=== PATIENT | female | born 1990 | race Caucasian/White ===

== ENCOUNTER 2025-01-08 20:54 | Emergency (ER) | payer OTHER, SELFPAY ==
--- NOTE | ~2025-01-08 | XR_ITS ---
XR forearm RT 2V Ordering provider: Lokesh Abraham PA-C History: . fall, laceration . Comparison: None. FINDINGS: BONES: No acute fracture or dislocation. JOINT SPACES: Normal. SOFT TISSUES: Normal. IMPRESSION: No acute osseous abnormality right forearm. Reviewed, dictated and finalized at location A.
--- NOTE | ~2025-01-08 | XR_ITS ---
XR hand RT min 3V Ordering provider: Lokesh Abraham PA-C History: . R hand laceration, fall . Comparison: None. FINDINGS: BONES: No acute fracture or dislocation. JOINT SPACES: Normal. SOFT TISSUES: Radiopaque foreign bodies are seen medially opposite the wrist area. IMPRESSION: No acute osseous abnormality right hand. Radiopaque foreign bodies seen medially. Reviewed, dictated and finalized at location A.
[2025-01-08 20:57] VITALS: BP 97/65; PULSE 107; RESP 16; TEMP 36.4; O2SAT 98
--- NOTE | 2025-01-08 21:06 | PC.NURSE ---
patient arrived to ED with lacerations on her arm and her palm. In triage this rn provided wound cleaning and applied wet to dry dressing to arm with coban and non adherent tefla to patient palm with coban.
--- NOTE | 2025-01-08 21:43 | ED_ITS ---
HPI - General Adult General Chief complaint: Wound/Laceration Stated complaint: hand injury Time Seen by Provider: 01/08/25 21:11 Source: patient Mode of arrival: ambulatory Limitations: no limitations History of Present Illness HPI narrative: This is a 34-year-old female who presents to the ED for chief complaint of fall with multiple lacerations to the right forearm. 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 States that she fell onto the wine glass which broke on the ground. This caused multiple small lacerations to her right forearm. She denies any further injury. States last tetanus shot was 5 years ago. Related Data Allergies Allergy/AdvReac Type Severity Reaction Status Date / Time azithromycin Allergy Severe Anaphylaxis Verified 01/08/25 20:57 infliximab (From Remicade) Allergy Severe Anaphylaxis Verified 01/08/25 20:58 Review of Systems Review of Systems: All systems as dictated in HPI Exam Narrative: GENERAL: Well-appearing, well-nourished, and in no acute distress. HEAD: Normocephalic, atraumatic. EYES: PERRLA and EOMI. ENT: Nares clear, no rhinorrhea or epistaxis. Mucous membranes moist. Oropharynx without tonsillar hypertrophy exudate or other lesions. NECK: Supple. No adenopathy or masses. CHEST: No respiratory distress. Clear to auscultation. No wheezes rales or rhonchi HEART: Regular rate and rhythm. No murmur heard. Normal peripheral pulses. ABDOMEN: Soft, nontender, nondistended, normal active bowel sounds. MSK: Normal range of motion. No edema. SKIN: Several small lacerations to the right volar forearm and palm. No active bleeding. NEURO: Alert and oriented x4. No focal deficits. PSYCH: Normal mood and affect. Course Vital Signs Vital signs: Vital Signs Temperature 97.6 F 01/08/25 20:57 Pulse Rate 107 H 01/08/25 20:57 Respiratory Rate 16 01/08/25 20:57 Blood Pressure 97/65 L 01/08/25 20:57 Pulse Oximetry 98 01/08/25 20:57 Oxygen Delivery Room Air 01/08/25 20:57 Temperature 97.6 F 01/08/25 20:57 Pulse Rate 97 01/08/25 23:02 Respiratory Rate 18 01/08/25 23:02 Blood Pressure 96/54 L 01/08/25 23:02 Pulse Oximetry 100 01/08/25 23:02 Oxygen Delivery Room Air 01/08/25 20:57 Procedures Laceration Laceration 1: Date: 01/08/25 Time: 22:44 Site: upper extremity Side (If applicable): right Size (cm): 3 Description: linear Depth: simple, single layer Local Anesthetic: lidocaine 1% and with epi Amount of anesthesia used (mL): 2 Pre-repair: wound explored, irrigated extensively and deep structures intact ====== Skin Level ====== Skin layer closed with: nylon Size (cm): 5-0 Number of sutures: 7 Technique: simple, interrupted ====== Subcutaneous Layer ====== ====== Muscle Layer ====== ====== Tendon Layer ====== Laceration 2: Date: 01/08/25 Time: 22:45 Site: upper extremity Side (If applicable): right Size (cm): 1 Description: linear Depth: simple, single layer Local Anesthetic: lidocaine 1% and with epi Amount of anesthesia used (mL): 1 Pre-repair: wound explored, irrigated extensively and deep structures intact ====== Skin Level ====== Skin layer closed with: nylon Size (cm): 5-0 Number of sutures: 2 Technique: simple, interrupted ====== Subcutaneous Layer ====== ====== Muscle Layer ====== ====== Tendon Layer ====== Laceration 3: Date: 01/08/25 Time: 22:45 Site: upper extremity Side (If applicable): right Size (cm): 2 Description: linear Depth: simple, single layer Local Anesthetic: lidocaine 1% and with epi Amount of anesthesia used (mL): 2 Pre-repair: wound explored, irrigated extensively and deep structures intact ====== Skin Level ====== Skin layer closed with: nylon Size (cm): 5-0 Number of sutures: 3 Technique: simple, interrupted ====== Subcutaneous Layer ====== ====== Muscle Layer ====== ====== Tendon Layer ====== Laceration 4: Date: 01/08/25 Time: 22:46 Site: hand Side (If applicable): right Size (cm): 3 Description: linear Depth: simple, single layer Local Anesthetic: lidocaine 1% and with epi Amount of anesthesia used (mL): 2 Pre-repair: wound explored, irrigated extensively and deep structures intact ====== Skin Level ====== Skin layer closed with: nylon Size (cm): 5-0 Number of sutures: 3 Technique: simple, interrupted ====== Subcutaneous Layer ====== ====== Muscle Layer ====== ====== Tendon Layer ====== Medical Decision Making MDM Narrative Medical decision making narrative: This is a 34-year-old female who presents to the ED for chief complaint of multiple lacerations to the right forearm after fall tonight on to broken glass. Vitals are normal. Exam remarkable for the above. The wounds were well cleansed irrigated here in the ED. Removed loose glass pieces from wound beds. The wounds were primarily closed with sutures. She will be started on prophylactic antibiotics as [place] is leaving the country tomorrow. Placed Ethilon sutures which should be removed in about 7-10 days. Laceration instructions were given. Patient will be discharged in stable condition. Supportive measures discussed and return precautions given. Patient is understanding and agreeable with plan for discharge with PCP follow-up. Vital Signs Vital Signs: Vital Signs Temperature 97.6 F 01/08/25 20:57 Pulse Rate 107 H 01/08/25 20:57 Respiratory Rate 16 01/08/25 20:57 Blood Pressure 97/65 L 01/08/25 20:57 Pulse Oximetry 98 01/08/25 20:57 Oxygen Delivery Room Air 01/08/25 20:57 Temperature 97.6 F 01/08/25 20:57 Pulse Rate 97 01/08/25 23:02 Respiratory Rate 18 01/08/25 23:02 Blood Pressure 96/54 L 01/08/25 23:02 Pulse Oximetry 100 01/08/25 23:02 Oxygen Delivery Room Air 01/08/25 20:57 Discharge Plan Discharge Clinical Impression: Laceration of multiple sites Patient Disposition: Home, Self-Care Condition: Stable Instructions: Antibiotic Form, Laceration (ED) Additional Instructions: Keep wound clean and dry. Do not soak, take baths, or swim until wound is completely healed. If any signs of infection such as redness, swelling, increasing pain, drainage of purulent discharge, streaks up your extremity develop, seek medical attention immediately. Followup with your primary care provider in [7-10] days for suture removal. Take Keflex as prescribed for bacterial prevention. Patient Language: Colombian Prescriptions: New cephalexin 750 mg capsule 750 mg PO Q12H Qty: 10 0RF Follow-up/Referrals: PHYSICIAN NOT ON STAFF,NONSTAFF [Primary Care Provider] - Time of Disposition: 22:47
--- OUTSIDE RECORDS SUMMARY | 2025-01-08 22:21 | XMS_ITS | Encounter Summary ---
Author Organization [facility] Address [address] [place] [address] Phone Care Team Providers Care Grinder And Plater Name Role Phone Kai Landers MD Unavailable [phone] Piedad Orr DO Primary Care Provider Velma Ash MD Unavailable Encounter Details Date Type Department Care Team (Late st Contact Info) Description 03/10/2019 Orders Only [facility] Scanning, Provider Social History Tobacco Use Types Packs/Day Years Used Date Smoking Tobacco: Former Comments Unknown Sex and Gender Information Value Date Recorded Sex Assigned at Not on file Legal Sex Female 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 Gender Identity Female 03/01/2020 9:11 AM CDT Sexual Orientation Lesbian 03/01/2020 9: 11 AM CDT documented as of this encounter Plan of Treatment Not on file documented as of this encounter Procedures Procedure Name Priority Date/Time Associated Diagnosis Comments SCAN - PATHOLOGY 03/10/2019 documented in this encounter Results * SCAN - PATHOLOGY (03/10/2019) us Provider Scanning Edited Result - Final documented in this encounter Visit Diagnoses Not on filedocumented in this encounter Additional Health Concerns Infection Onset Date Last Indicated Resolved Time COVID: Suspected 08/25/2021 08/25/2021 08/26/2021 5:34 AM BALLISTIC TECHNICIAN COVID: Suspected 08/05/2022 08/05/2022 08/06/2022 3:05 AM CDT COVID: Suspected 08/05/2022 08/05/2022 08/06/2022 3:45 AM CDT documented as of this encounter Care Teams Grinder And Plater Relationship Specialty Start Date End Date Piedad Orr DO [address] [facility] [address] DIV IM GASTROENTEROLOGY, [address] [address] PCP - General Family Medicine 04/21/24 Kai Landers MD [address] [facility] [address] DIV IM GASTROENTEROLOGY, [address] [address] Referring Physician Gastroenterology 12/12/21 Velma Ash MD [address] [place] [address] [address] Consulting Physician Obstetrics and Gynecology 04/21/24 documented as of this encounter
--- OUTSIDE RECORDS SUMMARY | 2025-01-08 22:21 | XMS_ITS | Encounter Summary ---
Author Organization [facility] Healthcare Address [address] [place] [address] Care Team Providers Care Gun Examiner Name Role Phone Kai Landers MD Unavailable [phone] Piedad Orr DO Primary Care Provider [phone] Velma Ash MD Unavailable Encounter Details Date Type Department Care Team (Late st Contact Info) Description 05/03/[address] 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 Gender Identity Female 03/01/2020 9:11 AM CDT Sexual Orientation Lesbian 03/01/2020 9: 11 AM CDT documented as of this encounter Plan of Treatment Not on file documented as of this encounter Visit Diagnoses Not on filedocumented in this encounter Additional Health Concerns Infection Onset Date Last Indicated Resolved Time COVID: Suspected 08/25/2021 08/25/2021 08/26/2021 5:34 AM INFORMATION SYSTEMS SECURITY MANAGER COVID: Suspected 08/05/2022 08/05/2022 08/06/2022 3:05 AM CDT COVID: Suspected 08/05/2022 08/05/2022 08/06/2022 3:45 AM CDT documented as of this encounter Care Teams Gun Examiner Relationship Specialty Start Date End Date Piedad Orr DO [address] [facility] DIV IM GASTROENTEROLOGY, [address] [address] PCP - General Family Medicine 04/21/24 Kai Landers MD [address] [facility] DIV GASTROENTEROLOGY, [address] [address] Referring Physician Gastroenterology 12/12/21 Velma Ash MD [address] [place] [address] [address] Consulting Physician Obstetrics and Gynecology 04/21/24 documented as of this encounter
--- OUTSIDE RECORDS SUMMARY | 2025-01-08 22:21 | XMS_ITS | Encounter Summary ---
Author Organization [facility] Healthcare Address [address] [place] [address] Care Team Providers Care Senior Materials Scientist Name Role Phone Kai Landers MD Unavailable [phone] Piedad Orr DO Primary Care Provider [phone] Velma Ash MD Unavailable Encounter Details Date Type Department Care Team (Late st Contact Info) Description 10/25/2021 Telephone [facility] ([facility]) [address] [place], [place] [id number] Edilma Buchanan DO [address] [id number] Social History Tobacco Use Types Packs/Day Years Used Date Smoking Tobacco: Never Vaping 2014 Smokeless Tobacco: Never Comments:1 year only Alcohol Use Standard Drinks/Week Comments Yes 2 (1 standard drink = 0.6 oz pur e alcohol) AUDIT-C Answer Date Recorded Q1: How often do you have a drink containing alc ohol? 2-4 times a month 09/26/2021 Q2: How many drinks containi ng alcohol do you have on a typical day when you are drinking? 1 or 2 09/26/2021 Q3: How often do you have si x or more drinks on one occasion? 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 Author CCM Chronic Pain Care Plan Chronic Care Management Worsening( 7:40 AM VC++ DEVELOPER) No Michelle Ugalde, JARAD Note: Problem: Chronic Pain Goals: 1. Minimize further functional decline 2. Maximize quality of life 3. Control pain Strategies: - Activity/exercise program recommendation - Conservative stepwise pain medicine strategy with multi-disciplinary approach - Recommend healthy lifestyle strategies and compensatory methods as needed documented as of this encounter Visit Diagnoses Not on filedocumented in this encounter Additional Health Concerns Infection Onset Date Last Indicated Resolved Time COVID: Suspected 08/05/2022 08/05/2022 08/06/2022 3:05 AM CDT COVID: Suspected 08/05/2022 08/05/2022 08/06/2022 3:45 AM CDT documented as of this encounter Care Teams Senior Materials Scientist Relationship Specialty Start Date End Date Piedad Orr DO [address] [facility] [address] DIV GASTROENTEROLOGY, [address] [address] PCP - General Family Medicine 04/21/24 Kai Landers MD [address] [facility] DIV GASTROENTEROLOGY, [address] [address] Referring Physician Gastroenterology 12/12/21 Velma Ash MD [address] [place] [address] DR Prit[address] [address] Consulting Physician Obstetrics and Gynecology 04/21/24 documented as of this encounter
--- OUTSIDE RECORDS SUMMARY | 2025-01-08 22:21 | XMS_ITS | Encounter Summary ---
Author Organization [facility] Healthcare Address [address] [place] [address] Care Team Providers Care Batter Depositor Name Role Phone Kai Landers MD Unavailable [phone] Piedad Orr DO Primary Care Provider [phone] Velma Ash MD Unavailable Encounter Details Date Type Department Care Team (Late st Contact Info) Description 05/02/2021 Telephone [facility] [address] [facility] [address] [place], [place] [id number] Kai Agudelo MD [address] [facility] [address] [place], [place] [id number] Social History Tobacco Use Types Packs/Day Years Used Date Smoking Tobacco: Every Day Cigarettes Started: 2013; Last attempted to quit: 2014 Vaping Smokeless Tobacco: Never Comments:1 year only Alcohol Use Standard Drinks/Week Comments Yes 2 (1 standard drink = 0.6 oz pur e alcohol) AUDIT-C Answer Date Recorded Q1: How often do you have a drink containing alc ohol? 2-4 times a month 04/30/2021 Q2: How many drinks containi ng alcohol do you have on a typical day when you are drinking? 3 or 4 04/30/2021 Q3: How often do you have si x or more drinks on one occasion? 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 Author CCM Chronic Pain Care Plan Chronic Care Management Worsening( 7:40 AM APARTMENT RENTAL CLERK) Michelle Gamez, JARAD Note: Problem: Chronic Pain Goals: 1. [...] COVID: Suspected 08/25/2021 08/25/2021 08/26/2021 5:34 AM APARTMENT RENTAL CLERK COVID: Suspected 08/05/2022 08/05/2022 08/06/2022 3:05 AM CDT COVID: Suspected 08/05/2022 08/05/2022 08/06/2022 3:45 AM CDT documented as of this encounter Care Teams Batter Depositor Relationship Specialty Start Date End Date Piedad Orr DO [address] DIV IM GASTROENTEROLOGY, [address] [address] PCP - General Family Medicine 04/21/24 Kai Landers MD [address] DIV GASTROENTEROLOGY, [address] [address] Referring Physician Gastroenterology 12/12/21 Velma Ash MD [address] [place] [address] DR Prit[address] [id number] Consulting Physician Obstetrics and Gynecology 04/21/24 documented as of this encounter
--- OUTSIDE RECORDS SUMMARY | 2025-01-08 22:22 | XMS_ITS | Referral Summary ---
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 would like her to be evaluated by Cardiology and Rheumatology for their input on her treatment options. Skyrizi may be in appealing option but it is hard to predict if this would be effective at improving her joint pain and managing her disease better than Stelara. 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 We worry that Cimzia we will not be effective. She would an incomplete response to Stelara so Skyrizi may also be less than perfect. Rinvoq may be more appealing as she is also having substantial joint pain but we would want to have her cardiac issues evaluated. Entyvio is certainly a safe option but would not help joint pain and may not have the best coverage for small bowel activity. She is reluctant to consider mercaptopurine or methotrexate due to previous experience. We would like her to continue Humira at the current interval for now and we will offer her referral to Rheumatology and Cardiology for symptomatic hypotension/syncope. Assessment & Plan (07/23/2022 9:52 PM CDT): finally in clinical remission on humira. Continue this. Get MRE this year to eval stricture and colon next year with possible dilation. IBD overlap and other chronic pain. I will take over rxing for NTP (increase to 75 up to 100) and lyrica. Assessment & Plan (05/03/2022 3:51 PM CDT): Unfortunately patient has never been able achieve full remission on Stelara despite appropriate drug levels. Now that she has been cleared by surgery to try other medications, we would like to retry Remicade given the patient's historical response. As she could have developed antibodies over this time, we provided her with a 40 mg samples syringe to take this evening after premedicating with Benadryl and prednisone. She can repeat this 1 more time the next day. If she has no symptoms after the 1st 24 hours, she can discontinue Benadryl and prednisone but should continue to look for late reaction symptoms. We would like her to to get her Humira antibody level checked next week. If she tolerates the injection well and does not have any antibodies, we would advocate for full Humira re-induction. As she required higher doses of Humira in the past to manage her disease, we will plan to check her trough level after she has had couple maintenance doses to see if needs to be adjusted. She will need a colonoscopy but does not need 1 in late May as she has mid therapy transition. We will offer her 2 months of budesonide for bridging and a week's worth of Xifaxan to see if this can help with some of her bloating symptoms. If the patient has reaction to Humira or has antibodies, we would consider Cimzia. Other alternatives would be Skyrizi or Rinvoq. Plan 1. Patient to try a single dose of Humira with antibody testing next week. She was given prednisone and encouraged to use Benadryl as premedications to mitigate any reaction 2. If the patient tolerates the injection and has no antibodies, we would recommend standard Humira re-induction and check trough level after a couple maintenance doses 3. Budesonide bridge for 2 months 4. If patient does not tolerate Humira, we can consider Cimzia, Skyrizi, or Rinvoq 5. The patient will need a repeat colonoscopy but this should be towards the end of the year after she has been on a therapy for at least 3-4 months Assessment & Plan (01/26/2022 7:24 PM CDT): Unfortunately the patient has not had a a complete response to Stelara and has very appropriate drug levels. She has not tolerated combination therapy and has required multiple rounds of budesonide to manage her symptoms. She does have arthralgias that seem to improve on budesonide and methotrexate suggesting that these are inflammatory. We do believe it is appropriate to change therapies but do not want to compromise her surgery plans. While in the past there had been concern about TNF inhibitors with surgical outcomes, more recent data has been quite supportive of it safety particularly when surgery is timed at the end of the interval. Https://pubmed.ncbi.nlm.nih.gov/16422433/. Stelara is considered even more safe across all categories than anti TNF. Any therapy that keeps her off prednisone would be superior. As we do not wish to disrupt the patient's surgery schedule as we are hopeful that she will get relief from this procedure, the considerations are: 1. Stay on Stelara until she has had surgery and then transition to either Cimzia or Humira. It now appears that surgery is not scheduled until March and the patient may require steroids in the interim. We also do not feel that she needs to be off therapy for extended periods of time around her surgery based on current data. Dr. Landers is available to discuss this further with the surgeon 2. Switch to either Cimzia or Humira now and coordinate was surgery 3. Re-stage disease now to evaluate the location of disease prior to changing therapies 4. Consider clinical trial after surgery or off-label use of something like Rinvoq Assessment & Plan (04/20/2021 7:35 PM CDT): Unfortunately the patient has only had a partial response to Stelara and methotrexate in cannot tolerate methotrexate for the side effects. We would like to see if adding back azathioprine can help achieve remission. Once the patient's doses therapeutic she will need a repeat colonoscopy and/or imaging to evaluate her response. If she is still isn't in remission, we would consider restarting Humira. The patient is aware that she may have developed antibodies to Humira. If she does have antibodies, Cimzia remains an option as Entyvio and clinical trials. We will give her an extension on her budesonide to bridge the azathioprine Plan 1. Continue Stelara for now 2. Restart azathioprine 125 mg daily 3. Safety labs now 4. Recheck metabolites in 4-6 weeks to verify adequacy 5. Continue budesonide until she has started azathioprine and then try to wean off after about a full month on budesonide 6. Repeat colonoscopy once her azathioprine dose is therapeutic and she has been on it for at least 3 months Assessment & Plan (12/18/2020 7:34 PM CDT): Still appears to have mild disease activity. The stricture in the terminal ileum may be causing some of the intermittent pain. Unfortunately, it is 10 cm long so it is unlikely to be dilated. 2 months budesonide, check stelara levels at trough (soon), vit d. Decrease mtx to 12.5 or go to 5 pills. 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 She is now appears to be having some response to ustekinumab with the addition of methotrexate. Her ustekinumab level was good. We would like to assess for objective improvement in inflammation. -MRE and colonoscopy when able -Continue ustekinumab and methotrexate at current doses Depression Resolved Problems Problem Noted Date Diagnosed Date Resolved Date Crohn's disease of ileum without complication 04/12/20 20 12/18/2020 Overview (04/12/2020): Added automatically from request for surgery [id number] Immunizations Immunization Administration Dates Next Due Influenza, Unspecified 08/20/2020 PPD TEST 04/25/2015 Pfizer SARS-CoV-2 Monovalent Vaccination (12+ Yrs) PURPLE 05/29/2021,11/03/2020,10/14/2020 Tdap 07/08/2020 Social History Tobacco Use Types Packs/Day Years Used Date Smoking Tobacco: Former Cigarettes Vaping Smokeless Tobacco: Never Tobacco Cessation:Counseling Given: Not Answered Comments:Currently vapes Alcohol Use Standard Drinks/Week Comments Yes 2 (1 standard drink = 0.6 oz pur e alcohol) AUDIT-C Answer Date Recorded Q1: How often do you have a drink containing alc ohol? 2-3 times a week 08/20/2024 Q2: How many drinks containi ng alcohol do you have on a typical day when you are drinking? 1 or 2 08/20/2024 Q3: How often do you have si x or more drinks on one occasion? Less than monthly 08/20/2024 PHQ-2 Answer Date Recorded PHQ-2 Total Score (If total score is 3 or more points, staff should administer the PHQ-9) 0 02/07/2022 Personal Safety Answer Date Recorded Have you ever been in or are you currently in a harmful physical or emotional relationship or is someone making you feel afraid or unsafe? 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 [employer] Not on file Not on file Not on file Last Filed Vital Signs Vital Sign Reading Time Taken Comments Blood Pressure 108/73 09/14/2024 11:32 AM TERMINAL WORKER Pulse 89 09/14/2024 11:32 AM TERMINAL WORKER Temperature 36.5 C (97.7 F) 08/20/2024 5:00 PM TERMINAL WORKER Respiratory Rate 12 08/20/2024 5:00 PM TERMINAL WORKER Oxygen Saturation 98% 08/20/2024 5:00 PM TERMINAL WORKER Inhaled Oxygen Concentration - - Weight 62.4 kg (137 lb 9.6 oz) 09/14/2024 11:32 AM TERMINAL WORKER Height 157.5 cm (5' 2 ) 09/14/2024 11:32 AM TERMINAL WORKER Body Mass Index 25.17 09/14/2024 11:32 AM TERMINAL WORKER Plan of Treatment Not on file Goals Goal Patient Goal Type Associated Problems Recent Progress Patient-Stated? Author CCM Chronic Pain Care Plan Chronic Care Management Worsening( 7:40 AM TERMINAL WORKER) No Michelle Ugalde RN Note: Problem: Chronic Pain Goals: 1. Minimize further functional decline 2. Maximize quality of life 3. Control pain Strategies: - Activity/exercise program recommendation - Conservative stepwise pain medicine strategy with multi-disciplinary approach - Recommend healthy lifestyle strategies and compensatory methods as needed Medical Devices Implanted Type Area County Agent Device Identifier Shelf Expiration Date Model / Serial / Lot [employer] Cinch[employer]s [employer] Professional Lock [place] Suture Labrum [id number] - [id number] Implanted:Qty: 1 on 03/07/2022 by Deborah Montoya MD at [facility] [place] Right: Hip Central Endoscopy [id number] 04/26/2023 [id number] / / [id number] [employer] [id number] Xbraid 1.2mm Suture Nonabsorbable Titanium Uhmwpe Nonsterile - [id number] Implanted:Qty: 1 on 03/07/2022 by Deborah Montoya MD at [facility] [place] Right: Hip [employer] [id number] 01/03/2024 [id number] / / [id number] Bard Per[employer] V[employer] Ultraclip Bard 17ga 10cm 2 Trigger Permanent Ultrasound [id number] - [id number] Implanted:Qty: 1 on 09/03/2023 by Katya Shaffer MD at [facility] Right: Breast [employer] [id number] / / Procedures Procedure Name Priority Date/Time Associated Diagnosis Comments PROGESTERONE Routine 11/18/2024 10:10 AM TERMINAL WORKER Encounter for fertility testing PROLACTIN Routine 11/18/2024 10:10 AM TERMINAL WORKER Encounter for fertility testing TSH Routine 11/11/2024 11:43 AM TERMINAL WORKER Encounter for screening for other suspected endocrine disorder ANTIMULLERIAN HORMONE (AMH) Routine 11/11/2024 11:43 AM TERMINAL WORKER Encounter for fertility testing PROGESTERONE Routine 11/11/2024 11:43 AM TERMINAL WORKER Encounter for fertility testing HYSTEROSALPINGOGRAM Schedule Routine, Read Routine (OP Routine) 11/11/2024 10:57 AM TERMINAL WORKER Cervical stenosis (uterine cervix) POCT HCG, URINE Routine 11/11/2024 10:07 AM TERMINAL WORKER HIGH RISK HPV DNA DETECTION WITH GENOTYPING Routine 04/28/2024 9:39 AM CDT Cervical cancer screening from Last 3 Months or Most Recently Relevant to Health Maintenance Results * Prolactin (11/18/2024 10:10 AM TERMINAL WORKER) Prolactin 19.8 4.8 - 23.3 ng/mL Blood 11/18/2024 10:1 0 AM TERMINAL WORKER 11/18/2024 10:29 AM TERMINAL WORKER us Najma Mars MD LAB BLOOD ORDERABLES Final Re sult [facility] Department [place] [address] * Progesterone (11/18/2024 10:10 AM TERMINAL WORKER) Progesterone 9.85 ng/mL Comment: Interpretive Data Males: <0.15 ng/mL Females: Follicular <0.20 ng/mL Ovulation <4.1 ng/mL Luteal 4.1 - 14.5 ng/mL 1st Trimester 11.0 - 44.0 ng/mL 2nd Trimester 25.0 - 83.0 ng/mL 3rd Trimester 59.0 - 214.0 ng/mL Postmenopausal <0.13 ng/mL Current interpretive data was last revised 2021. Blood 11/18/2024 10:1 0 AM TERMINAL WORKER 11/18/2024 10:29 AM TERMINAL WORKER Najma Mars MD LAB BLOOD ORDERABLES Final Re sult Performing Organization Address [facility] Co de Phone Number [facility] [place] [place] [address] * Antimullerian hormone (AMH) (11/11/2024 11:43 AM TERMINAL WORKER) AMH, ab 2.6 0.58 - 8.1 ng/mL [facility] Comment: ADDITIONAL INFORMATION The testing method is an electrochemiluminescence assay manufactured by [employer] and performed on the Mitchel system. Values obtained with different assay methods or kits may be different and cannot be used interchangeably. This test has been modified from the manufacturers instructions. Its performance characteristics were determined by [facility] in a manner consistent with CLIA requirements. This test has not been cleared or approved by the U.S. Food and Drug Administration. Test Performed by: [address] [address] Horseback Riding Instructor: Justa Lopez Ph.D.; CLIA# [id number] Blood 11/11/2024 11:4 3 AM TERMINAL WORKER 11/11/2024 3:07 PM TERMINAL WORKER Najma Mars MD LAB BLOOD ORDERABLES Final Re sult Performing Organization Address [facility] Co de Phone Number [facility] Department [place] [address] [facility] * Progesterone (11/11/2024 11:43 AM TERMINAL WORKER) Progesterone 0.39 ng/mL Comment: Interpretive Data Males: <0.15 ng/mL Females: Follicular <0.20 ng/mL Ovulation <4.1 ng/mL Luteal 4.1 - 14.5 ng/mL 1st Trimester 11.0 - 44.0 ng/mL 2nd Trimester 25.0 - 83.0 ng/mL 3rd Trimester 59.0 - 214.0 ng/mL Postmenopausal <0.13 ng/mL Current interpretive data was last revised 2021. Blood 11/11/2024 11:4 3 AM TERMINAL WORKER 11/11/2024 12:43 PM TERMINAL WORKER Najma Mars MD LAB BLOOD ORDERABLES Final Re sult Performing Organization Address City/[facility] Co de Phone Number [facility] Department [place] [address] * TSH (11/11/2024 11:43 AM TERMINAL WORKER) Thyroid Stimulating Hormone 3.07 0.30 - 4.20 mcIUnit/mL Blood 11/11/2024 11:4 3 AM TERMINAL WORKER 11/11/2024 12:43 PM TERMINAL WORKER Najma Mars MD LAB BLOOD ORDERABLES Final Re sult Performing Organization Address City/[facility] Co de Phone Number [facility] [address] [place] [address] * FL Hysterosalpingogram (11/11/2024 10:57 AM TERMINAL WORKER) Anatomical Region Laterality Modality Body, Pelvis N/A Radio Fluoroscop y 11/11/2024 11:1 8 AM TERMINAL WORKER Impressions 11/11/2024 11:32 AM TERMINAL WORKER 1. Patent right fallopian tube with appropriate peritoneal spillage. The most easily visualized cervix and cervical os is on the right. The left was not easily visualized and was not cannulated. 2. Small filling defect in the mid-right uterine cavity. On review of prior MRI exams, there is a possible correlate that may represent a tiny submucosal fibroid or focal adenomyosis (see image 16 of series 3 on the 05/26/14 MRI of the hip). No definite correlate for this is appreciated on provided images from the prior pelvic US. If indicated, this could be further evaluated with either a dedicated pelvic MRI or hystero sonogram. Dictated by: Dixon Georges M.D. (Ramanan) The radiology attending physician has personally reviewed this study, and had reviewed and/or edited this written report and agrees with it. Electronically signed by: Mohsen Mckinney M.D. Narrative 11/11/2024 11:32 AM TERMINAL WORKER EXAMINATION: HYSTEROSALPINGOGRAM HISTORY: 34 year old woman, on day 11 of her menstrual cycle. Noted to have 2 uterine cavities and 2 cervices. Diagnostic evaluation of the fallopian tubes and uterine cavity. TECHNIQUE: Using sterile technique, a speculum was inserted into the vagina and the cervix swabbed with Betadine solution. A hysterocatheter was placed and Conray 60 was injected into the uterus via the visualized cervical os. Fluoroscopic images of the pelvis were obtained. The patient tolerated the procedure well without complication. Dr. Mohsen Mckinney M.D., the attending radiologist, was present from the beginning to the end of the procedure. FINDINGS: Endocervical canal: During the speculum exam, we were able to easily visualize one cervix and cervical os which was cannulated. The second cervical os was not well visualized. During contrast injection, accessed cervical os communicated with the right uterine cavity and fallopian tube. Uterus: The uterus is anteverted. There is a small filling defect in the mid-right uterine cavity which persists when the catheter is retracted with deflated balloon. Fallopian tubes: The right fallopian tube is normal in contour. There is peritoneal spillage from the right fallopian tube. Procedure Note Mohsen Mckinney MD - 11/11/2024 EXAMINATION: HYSTEROSALPINGOGRAM HISTORY: 34 year old woman, on day 11 of her menstrual cycle. Noted to have 2 uterine cavities and 2 cervices. Diagnostic evaluation of the fallopian tubes and uterine cavity. TECHNIQUE: Using sterile technique, a speculum was inserted into the vagina and the cervix swabbed with Betadine solution. A hysterocatheter was placed and Conray 60 was injected into the uterus via the visualized cervical os. Fluoroscopic images of the pelvis were obtained. The patient tolerated the procedure well without complication. Dr. Mohsen Mckinney M.D., the attending radiologist, was present from the beginning to the end of the procedure. FINDINGS: Endocervical canal: During the speculum exam, we were able to easily visualize one cervix and cervical os which was cannulated. The second cervical os was not well visualized. During contrast injection, accessed cervical os communicated with the right uterine cavity and fallopian tube. Uterus: The uterus is anteverted. There is a small filling defect in the mid-right uterine cavity which persists when the catheter is retracted with deflated balloon. Fallopian tubes: The right fallopian tube is normal in contour. There is peritoneal spillage from the right fallopian tube. IMPRESSION: 1. Patent right fallopian tube with appropriate peritoneal spillage. The most easily visualized cervix and cervical os is on the right. The left was not easily visualized and was not cannulated. 2. Small filling defect in the mid-right uterine cavity. On review of prior MRI exams, there is a possible correlate that may represent a tiny submucosal fibroid or focal adenomyosis (see image 16 of series 3 on the 05/26/14 MRI of the hip). No definite correlate for this is appreciated on provided images from the prior pelvic US. If indicated, this could be further evaluated with either a dedicated pelvic MRI or hystero sonogram. Dictated by: Dixon Georges M.D. (Ramanan) The radiology attending physician has personally reviewed this study, and had reviewed and/or edited this written report and agrees with it. Electronically signed by: Mohsen Mckinney M.D. Najma Mars MD IMG FLUOROSCOPY PROCEDURES Fi nal Result * POCT hCG, urine (11/11/2024 10:07 AM TERMINAL WORKER) HCG, ur, POC Negative Negative Lot Number [id number] QC Backgroud Clear Acceptable QC Control Line Acceptable Urine 11/11/2024 10:0 7 AM TERMINAL WORKER Najma Mars MD POINT OF CARE TEST ORDERABLES Final Result * High Risk HPV DNA Detection with Genotyping (Molecular component) (04/28/2024 9:39 AM CDT) HPV HR 16 Not Detected Not Detected [facility] Comment:Testing performed by : [facility], [address] [place]., [address] HPV HR 18 Not Detected Not Detected [facility] Comment:Testing performed by : [facility], [address] [place]., [address] HPV HR Non 16/18 Not Detected Not Detected [facility] Comment: Interpretive Data Nucleic acid amplification for detection of high-risk Human Papilloma virus (HPV) is performed by the Dar[employer] Mitchel 6800 HPV test. This assay specifically detects HPV-16 and HPV-18 genotypes. The following HPV genotypes are detected as high-risk HPV: HPV-31, 33, 35, ,39, 45, 51, 52, 56, 58, 59, 66, and 68. This assay has been approved by the [place] Food and Drug Administration for detection of HPV in cervical specimens collected by a physician using an endocervical brush/spatula or cervical broom and placed in the ThinPrep Pap Test PreservCyt collection containers. The performance characteristics of this test have been verified by the [facility] Molecular Infectious Disease laboratory. Correlate with separately reported cytology results, as applicable. Interpretive data last revised 23 Testing performed by: [facility], [address] [place]., [address] Endocervical 04/28/2024 9:39 AM CDT 04/29/2024 12:54 PM CDT Narrative [facility] - 04/29/2024 6:14 PM CDT Clinical history and diagnosis->Screening, Crohn's, complete septate uterus Testing type->Screening Last menstrual period (date if known)->03/05/2024 Veronika Peguero OLD TESTAMENT PROFESSOR LAB BODY FLUIDS AND S TOOLS ORDERABLES Final Result Performing Organization Address City/State/[facility] Co hi Phone Number [facility] [place] [address] Department [place] [address] [facility] from Last 3 Months or Most Recently Relevant to Health Maintenance Insurance [employer] Address: [facility] [id number] [place] [address] [employer] Address: [facility] [id number] [place] [address] GENERIC [employer] [address] [facility] [phone] [place] [address] [employer] C[employer] Advance Directives For more information, please contact: [phone] * Full Code (Latest Code Status on File) Date Activated Date Inactivated Comments 07/14/2024 7:17 AM 07/14/2024 1:06 PM * Full Code Date Activated Date Inactivated Comments 03/05/2023 9:58 AM 03/05/2023 4:40 PM * Full Code Date Activated Date Inactivated Comments 07/12/2020 5:03 PM 07/13/2020 10:02 PM * Full Code Date Activated Date Inactivated Comments 05/15/2020 8:20 AM 05/15/2020 2:44 PM Care Teams Hot Die Press Feeder Relationship Specialty Start Date End Date Piedad Orr DO [address] [facility] [address] DIV IM GASTROENTEROLOGY, [address] [address] PCP - General Family Medicine 04/21/24 Kai Landers MD [address] [facility] [address] DIV IM GASTROENTEROLOGY, [address] [address] Referring Physician Gastroenterology 12/12/21 Velma Ash MD [employer] [facility] [address] [place] [address] [address] Consulting Physician Obstetrics and Gynecology 04/21/24
--- OUTSIDE RECORDS SUMMARY | 2025-01-08 22:22 | XMS_ITS | Clinical Summary ---
Author Organization [facility] Address [address] [place] [address] Care Team Providers Care Can Operator Name Role Phone Unavailable Primary Care Provider Unavailabl e Source Comments [facility],non-owned Affiliates and Associated Physician Practices is amultiple site organization consisting of ambulatory clinics and hospital sitesin [place], [place], [place] and [place]. This disclosure is being madepursuant to the Care Everywhere program and may not contain all information available regarding this patient. Last updated 18.[facility] Allergies Active Allergy Reactions Criticality Noted Date Comments Amoxicillin 11/20/2016 Azithromycin 11/20/2016 Social History Tobacco Use Types Packs/Day Years Used Date Smoking Tobacco: Never Assessed Sex and Gender Information Value Date Recorded Sex Assigned at Not on file Gender Identity Not on file Sexual Orientation Not on file Last Filed Vital Signs Vital Sign Reading Time Taken Comments Blood Pressure 120/62 11/20/2016 6:23 PM [facility] Pulse 82 11/20/2016 6:23 PM [facility] Temperature 36.8 C (98.2 F) 11/20/2016 6:23 PM [facility] Respiratory Rate 18 11/20/2016 6:23 PM [facility] Oxygen Saturation - - Inhaled Oxygen Concentration - - Weight 54.4 kg (120 lb) 11/20/2016 6:23 PM [facility]HA[facility] Height 158.8 cm (5' 2.5 ) 11/20/2016 6:23 PM [facility]HA[facility]ER Body Mass Index 21.6 11/20/2016 6:23 PM [facility]HA[facility]ER Plan of Treatment Health Maintenance Due Date Last Done Comments PAP SMEAR 1990 HIV SCREENING 2005 HEPATITIS C SCREENING 01/07/2008 DTAP/TDAP/TD VACCINES (1 - Tdap) 2009 HEPATITIS B VACCINE (1 of 3 - 19+ 3-dose series) 2009 COVID-19 VACCINE (2023-2 5 season) 2024 INFLUENZA VACCINE (#1) 2024 DEPRESSION SCREENING 10/06/2024 ZOSTER VACCINE (1 of 2) 01/12/2040 HIB VACCINE Aged Out No longer eligi ble based on patient's age to complete this topic HPV VACCINE Aged Out No longer eligi ble based on patient's age to complete this topic MENINGOCOCCAL (Group B) VACC INE SHARED DECISION-MAKING Aged Out No longer eligibl e based on patient's age to complete this topic MENINGOCOCCAL GROUPS A/C/Y/W VACCINE Aged Out No longer eligible b ased on patient's age to complete this topic PNEUMOCOCCAL VACCINE Aged Out No long er eligible based on patient's age to complete this topic
--- OUTSIDE RECORDS SUMMARY | 2025-01-08 22:22 | XMS_ITS | Clinical Summary ---
Author Organization [facility] Address [facility] [place] [address] Care Team Providers Care Compounder [employer]ile [employer] Name Role Phone Kai Landers MD Unavailable [phone] Piedad Orr DO Primary Care Provider [phone] Velma Ash MD Unavailable Allergies Active Allergy Reactions Criticality Noted Date [...] mouth nightly 90 capsule 1 4 12/18/19 25 Discontinu ed(Reorder ) risankizumab-rzaa (Skyrizi) 360 mg/2.4 mL (150 mg/mL) wearable injectorIndicatio ns:PA approved valid from 02/17/24-03/18/25 Inject 360 mg under the skin every 8 (eight) weeks 2.4 mL 1 5 12/18/19 25 Discontinu ed(Reorder ) dextroamphetamine -amphetamine (ADDERALL) 20 mg tabletIndications :Attention-Defici t Hyperactivity Disorder Take 1 tablet (20 mg total) by mouth 2 (two) times a day 60 tablet 5 12/15/19 25 Discontinu ed(Reorder ) sertraline (Zoloft) 25 mg tabletIndications :Depression, unspecified depression type,PTSD (post-traumatic stress disorder),Anxiety Take 1 tablet (25 mg total) by mouth daily 30 tablet 1 5 12/15/19 25 Discontinu ed(Duplica te order) doxycycline (doxycycline hyclate) 100 mg capsule Take 1 tablet/caps ule (100 mg total) by mouth 2 (two) times a day for 10 days 20 tablet/capsu le 5 01/01/20 25 Hospital, Clinic, or Other Facility Administered Medication Ordered Dose Route Frequency Start Date End Date Status perflutren protein-a (OPTISON) 3 mL in sodium chloride 0.9% 8 mL syringe 1 - 8 mL IV Once in imaging 09/03/2023 Active Active Problems Problem Noted Date Diagnosed Date Vaginal septum 06/30/2024 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 Assessment & Plan (08/14/2023 7:13 AM OUTSIDE ENERGY SALES REPRESENTATIVES): Ideally we would limit stimulant laxatives in favor of osmotic options. She is encouraged to try taking Metamucil gummy and go up on her magnesium. If this is insufficient, we can certainly explore options like Ibrance, Trulance, Amitiza, or low-dose Linzess Tachycardia 08/14/2023 Assessment & Plan (08/14/2023 7:15 AM OUTSIDE ENERGY SALES REPRESENTATIVES): The patient is scheduled to see Cardiology in a week. She is increasingly bothered by palpitations. The Adderall and her nortriptyline potentially could contribute to palpitations. If her rail transit operator thought her nortriptyline was felt to be [...] (01/18/2022): Added automatically from request for surgery [id number] Other chronic pain 10/11/2021 Assessment & Plan (12/09/2023 4:58 PM OUTSIDE ENERGY SALES REPRESENTATIVES): The patient would like to try tapering [...] (07/11/2020): Added automatically from request for surgery [id number] Avulsion of right foot excluding toes 07/09/2020 Overview (07/09/2020): Added automatically from request for surgery [id number] High risk medications (not anticoagulants) long- term [...] Therapy. We regularly update our https://ibd.[facility] website and social media feeds to further [...] with IBD including those on immunosuppressive drugs. https://www.crohnscolitisfoundation.org/coronavirus/btwt-obn-nerejeqh-should-kno w https://www.cdc.gov/coronavirus/2019-nCoV/index.html https://www.ioibd.org/xqmjc-tqopfj-yp-ahqpu32-jmb-fvaebhqv-gfnk-mgufmv-sxunjcz-n nd-ul cerative-colitis/ Assessment & Plan (02/21/2020 4:43 [...] Therapy. We regularly update our https://ibd.[facility] website and social media feeds to further [...] COVID-19 to the SECURE-IBD registry at COVIDIBD.org. https://www.crohnscolitisfoundation.org/coronavirus/npts-kqg-skdfxzin-should-kno w https://www.cdc.gov/coronavirus/2019-nCoV/index.html https://www.ioibd.org/ffzxv-eyrnir-dc-ngfye97-idz-zjvsvwjy-svgw-ltvrsc-tibtbnj-n nd-ul cerative-colitis/ Epigastric pain 06/18/2019 Assessment & [...] 10/05/2013 Assessment & Plan (12/09/2023 4:55 PM OUTSIDE ENERGY SALES REPRESENTATIVES): The patient is feeling better on Trulance. [...] 11/03/2008 Assessment & Plan (08/14/2023 7:11 AM OUTSIDE ENERGY SALES REPRESENTATIVES): The patient indicates that her joint pain [...] dilation. Assessment & Plan (12/09/2023 4:54 PM OUTSIDE ENERGY SALES REPRESENTATIVES): Happily the patient is feeling progressive improvement [...] therapy Assessment & Plan (09/05/2023 4:01 PM OUTSIDE ENERGY SALES REPRESENTATIVES): Happily the patient did appear to have [...] bridging. Assessment & Plan (08/14/2023 7:18 AM OUTSIDE ENERGY SALES REPRESENTATIVES): The patient's recent colonoscopy and MR enterography [...] timed at the end of the interval. Https://pubmed.ncbi.nlm.nih.gov/98672163/. Stelara is considered even more safe across [...] Date Crohn's disease of ileum without complication 04/12/2012/18/2020 Overview (04/12/2020): Added automatically from request for surgery [id number] Encounters Date Type Department Care Team Description 12/21/2024 12:55 PM CDT E-Visit [facility] Medical Group Virtual Care [address] [place] [address] Erika Pond NP Your Medications 12/21/2024 Patient Self-Triage [facility] HealthCare/ Physicians [address] [place] [address] Mychart, Generic Provider 12/17/2024 Orders Only [facility] Gastroenterology [address] [facility] Medical Office Building [address] [place] [phone] Orin Catalan NP Crohn's disease of ileum without complication (HCC) 12/14/2024 11:30 AM CDT Telemedicine [facility] Department of Psychiatry [address] [facility] [address] [place] [address] Jl Muro MD Depression, unspecified depression type (Primary Dx); PTSD (post-traumatic stress disorder); Anxiety; Attention deficit hyperactivity disorder (ADHD), combined type 12/07/2024 Documentation [facility] [address] [place] [address] Cayla Wynn MD 11/18/2024 10:00 AM OUTSIDE ENERGY SALES REPRESENTATIVES Lab [facility] ([facility]) [address] [place] [phone] Encounter for fertility testing 11/18/2024 6:58 AM OUTSIDE ENERGY SALES REPRESENTATIVES - 11/18/2024 11:59 PM OUTSIDE ENERGY SALES REPRESENTATIVES Hospital Encounter [address], [address] [address] Discharge Disposition: Discharge to home or self care 11/16/2024 10:40 AM OUTSIDE ENERGY SALES REPRESENTATIVES Telemedicine [facility] Reproductive Endocrinology [address] [place] [phone] Najma Mars MD Encounter for procreative management (Primary Dx) 11/11/2024 11:30 AM OUTSIDE ENERGY SALES REPRESENTATIVES Lab [facility] ([facility]) [address] [place] [phone] Encounter for fertility testing; Encounter for screening for other suspected endocrine disorder 11/11/2024 6:30 AM OUTSIDE ENERGY SALES REPRESENTATIVES - 11/11/2024 11:59 PM OUTSIDE ENERGY SALES REPRESENTATIVES Hospital Encounter [facility] ([facility]) [address] [place] [address] Cervical stenosis (uterine cervix) Discharge Disposition: Discharge to home or self care 11/11/2024 Orders Only [facility] Reproductive Endocrinology [address] [place] [phone] Najma Mars MD Encounter for screening for other suspected endocrine disorder (Primary Dx); Encounter for fertility testing 10/21/2024 Telephone [facility] Reproductive Endocrinology [address] [place] [phone] Yaz Poole RN Donor Confirmation/SLK 10/19/2024 Orders Only [facility] Gastroenterology [address] [place] [address] Medical Office Building [address] [place] [phone] Orin Catalan, CLAUDIA Crohn's disease of ileum without complication (HCC) 10/12/2024 10:00 AM OUTSIDE ENERGY SALES REPRESENTATIVES Telemedicine [facility] Reproductive Endocrinology [address] [place] [address] Najma Mars MD Encounter for fertility testing (Primary Dx) 10/11/2024 Telephone [facility] Reproductive Endocrinology [address] [place] [phone] Yaz Poole RN Next Steps/SLK from Last 3 Months Immunizations Immunization Administration Dates Next Due Influenza, Unspecified 08/20/2020 PPD TEST 04/25/2015 Pfizer SARS-CoV-2 Monovalent Vaccination (12+ Yrs) PURPLE 05/29/2021,11/03/2020,10/14/2020 Tdap 07/08/2020 Surgical History Surgery Date Site/Laterality Comments DIAGNOSTIC LAPAROSCOPY 10/06/2012 - 10/05/[address] Orozco to try to 'laser septum' FRACTURE SURGERY 10/06/2019 - 10/05/2020 Right foot SKIN GRAFT 07/13/2020 right foot INCISION AND DRAINAGE FOOT 07/12/2020 right foot COLON BIOPSY 05/15/2020 TONSILLECTOMY 10/06/1996 - 10/05/1997 COLONOSCOPY BREAST BIOPSY 09/03/2023 Right HIP ARTHROSCOPY 10/06/2021 - 10/05/2022 Right COSMETIC SURGERY EXAMINATION UNDER ANESTHESIA 08/20/2024 EXAM UNDER ANESTHESIA OPERATIVE HYSTEROSCOPY 08/20/2024 OPERATIVE HYSTEROSCOPY - REMOVE VAGINAL SEPTUM Medical History Medical History Date Comments Adhd Crohn's disease (HCC) Paroxysmal SVT (supraventricular tachycardia) 20 13 Has heart murmoer Arthritis Chronic pain disorder right hip and lower leg Hip pain Leg pain Anemia Depression Peptic ulceration Autoimmune disease GI (gastrointestinal bleed) 2017 Cro ns Menstrual problem Abnormal Pap smear of cervix Ovarian cyst Motion sickness Family History Medical History Relation Name Comments Alcohol abuse Father Maurice Diabetes Maternal Grandfather Joselito Arthritis Maternal Grandmother Gina Breast cancer Maternal Grandmother Gina Cancer Maternal Grandmother Gina Clotting disorder Maternal Grandmother Gina Deep vein thrombosis Maternal Grandmother Gina Heart disease Maternal Grandmother Gina Hypertension Maternal Grandmother Gina Vision loss Maternal Grandmother Gina COPD Mother Georgie Cancer Mother Georgie Crohn's disease Mother Georgie Crohn's Dise ase - (Added by TW Conv)/Crohn's Disease - (Added by TW Conv) Depression Mother Georgie Rashes / Skin problems Mother Georgie Pulmonary embolism Other M cousin 3 months PP Colon cancer Paternal Grandfather Abdominal Aortic Aneurysm Neg Hx Anesthesia problems Neg Hx Ovarian cancer Neg Hx Relation Name Status Comments Father Maurice Alive Maternal Grandfather Joselito Maternal Grandmother Gina Mother Georgie Alive Other M cousin Alive Paternal Grandfather Social History Tobacco Use Types Packs/Day Years [...] on file Legal Sex Female 9:24 PM OUTSIDE ENERGY SALES REPRESENTATIVES Gender Identity Female 03/01/2020 9:11 AM CDT Sexual Orientation Lesbian 03/01/2020 9: 11 AM CDT 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 Not on file Not on file Not on file Obstetrics History Para Term AB IAB SAB Ectopic Multiple Livin g Live Births 0 0 0 0 0 0 0 0 0 0 0 Last Filed Vital Signs Vital Sign Reading Time Taken Comments Blood Pressure 108/73 09/14/2024 11:32 AM OUTSIDE ENERGY SALES REPRESENTATIVES Pulse 89 09/14/2024 11:32 AM OUTSIDE ENERGY SALES REPRESENTATIVES Temperature 36.5 C (97.7 F) 08/20/2024 5:00 PM OUTSIDE ENERGY SALES REPRESENTATIVES Respiratory Rate 12 08/20/2024 5:00 PM OUTSIDE ENERGY SALES REPRESENTATIVES Oxygen Saturation 98% 08/20/2024 5:00 PM OUTSIDE ENERGY SALES REPRESENTATIVES Inhaled Oxygen Concentration - - Weight 62.4 kg (137 lb 9.6 oz) 09/14/2024 11:32 AM OUTSIDE ENERGY SALES REPRESENTATIVES Height 157.5 cm (5' 2 ) 09/14/2024 11:32 AM OUTSIDE ENERGY SALES REPRESENTATIVES Body Mass Index 25.17 09/14/2024 11:32 AM OUTSIDE ENERGY SALES REPRESENTATIVES Plan of Treatment Health Maintenance Due Date Last Done Comments Hepatitis C Screening 1990 Varicella Vaccines (1 of 2 - 13+ 2-dose series) 2003 Hepatitis B Screening 01/12/2008 Depression Screening 02/07/2023 02/07/2022 Covid-19 Vaccine ( season) 2024 05/29/2021, 11/03/2020, 10/14/2020 Cervical Cancer Screening 04/28/20252023, 04/28/2024, 02/27/2021, Additional history exists Regular Well Visit/Exam 18-64 04/28/2025 04/28/2024, 02/27/2021 DTaP/Tdap/Td Vaccine (2 - Td or Tdap) 07/08/2030 07/08/2020 Influenza Vaccine Completed 08/13/2024, , 07/12/2022, Additional history exists HPV Vaccines Aged Out No longer eligi ble based on patient's age to complete this topic Pneumococcal vaccine <65 Aged Out No longer eligible based on patient's age to complete this topic Goals Goal Patient Goal Type Associated Problems Recent Progress Patient-Stated? Author CCM Chronic Pain Care Plan Chronic Care Management Worsening( 7:40 AM OUTSIDE ENERGY SALES REPRESENTATIVES) Michelle Gamez, RN Note: Problem: Chronic Pain Goals: 1. Minimize further functional decline 2. Maximize quality of life 3. Control pain Strategies: - Activity/exercise program recommendation - Conservative stepwise pain medicine strategy with multi-disciplinary approach - Recommend healthy lifestyle strategies and compensatory methods as needed Medical Devices Implanted Type Area Media Associate Device Identifier Shelf Expiration Date Model / Serial / Lot [place] [facility] Cinchlock Ss Knotless Instructor Traffic Safety Lock [place] Suture Labrum [id number] - [id number] Implanted:Qty: 1 on 03/07/2022 by Deborah Montoya MD at [facility] Right: Hip [employer] [id number] 04/26/2023 [id number] / / [id number] [employer] [id number] Xbraid 1.2mm Suture Nonabsorbable Titanium Uhmwpe Nonsterile - [id number] Implanted:Qty: 1 on 03/07/2022 by Deborah Montoya MD at [facility] Right: Hip [employer] [id number] 01/03/2024 [id number] / / [id number] Bard Peripheral Vascular Ultraclip Bard 17ga 10cm 2 Trigger Permanent Ultrasound [id number] - [id number] Implanted:Qty: 1 on 09/03/2023 by Katya Shaffer MD at [facility] Right: Breast [employer] [id number] / / Procedures Procedure Name Priority Date/Time Associated Diagnosis Comments PROGESTERONE Routine 11/18/2024 10:10 AM OUTSIDE ENERGY SALES REPRESENTATIVES Encounter for fertility testing PROLACTIN Routine 11/18/2024 10:10 AM OUTSIDE ENERGY SALES REPRESENTATIVES Encounter for fertility testing TSH Routine 11/11/2024 11:43 AM OUTSIDE ENERGY SALES REPRESENTATIVES Encounter for screening for other suspected endocrine disorder ANTIMULLERIAN HORMONE (AMH) Routine 11/11/2024 11:43 AM OUTSIDE ENERGY SALES REPRESENTATIVES Encounter for fertility testing PROGESTERONE Routine 11/11/2024 11:43 AM OUTSIDE ENERGY SALES REPRESENTATIVES Encounter for fertility testing HYSTEROSALPINGOGRAM Schedule Routine, Read Routine (OP Routine) 11/11/2024 10:57 AM OUTSIDE ENERGY SALES REPRESENTATIVES Cervical stenosis (uterine cervix) POCT HCG, URINE Routine 11/11/2024 10:07 AM OUTSIDE ENERGY SALES REPRESENTATIVES HIGH RISK HPV DNA DETECTION WITH GENOTYPING Routine 04/28/2024 9:39 AM CDT Cervical cancer screening from Last 3 Months or Most Recently Relevant to Health Maintenance Results * Prolactin (11/18/2024 10:10 AM OUTSIDE ENERGY SALES REPRESENTATIVES) Prolactin 19.8 4.8 - 23.3 ng/mL Blood 11/18/2024 10:1 0 AM OUTSIDE ENERGY SALES REPRESENTATIVES 11/18/2024 10:29 AM OUTSIDE ENERGY SALES REPRESENTATIVES Najma Mars MD LAB BLOOD ORDERABLES Final Re sult Performing Organization Address [facility] de Phone Number [facility] [place] [address] * Progesterone (11/18/2024 10:10 AM OUTSIDE ENERGY SALES REPRESENTATIVES) Pathologist [facility] Progesterone 9.85 ng/mL Comment: Interpretive Data Males: <0.15 ng/mL Females: Follicular <0.20 ng/mL Ovulation <4.1 ng/mL Luteal 4.1 - 14.5 ng/mL 1st Trimester 11.0 - 44.0 ng/mL 2nd Trimester 25.0 - 83.0 ng/mL 3rd Trimester 59.0 - 214.0 ng/mL Postmenopausal <0.13 ng/mL Current interpretive data was last revised 2021. Blood 11/18/2024 10:1 0 AM OUTSIDE ENERGY SALES REPRESENTATIVES 11/18/2024 10:29 AM OUTSIDE ENERGY SALES REPRESENTATIVES Result [facility] Najma Mars MD LAB BLOOD ORDERABLES Final Re sult Performing Organization Address [facility] de Phone Number [facility] [place] [address] * Antimullerian hormone (AMH) (11/11/2024 11:43 AM OUTSIDE ENERGY SALES REPRESENTATIVES) Pathologist [facility] AMH, ab 2.6 0.58 - 8.1 ng/mL [facility] Comment: ADDITIONAL INFORMATION The testing method is an electrochemiluminescence assay manufactured by [employer] and performed on the Mitchel system. Values obtained with different assay methods or kits may be different and cannot be used interchangeably. This test has been modified from the manufacturers instructions. Its performance characteristics were determined by [facility] in a manner consistent with CLIA requirements. This test has not been cleared or approved by the U.S. Food and Drug Administration. Test Performed by: [facility] [address] [place] [address] Funeral Home Attendant: Justa Lopez Ph.D.; CLIA# [id number] Blood 11/11/2024 11:4 3 AM OUTSIDE ENERGY SALES REPRESENTATIVES 11/11/2024 3:07 PM OUTSIDE ENERGY SALES REPRESENTATIVES Najma Mars MD LAB BLOOD ORDERABLES Final Re sult Performing Organization Address City/[facility] Co de Phone Number [facility] [place] [address] [facility] * Progesterone (11/11/2024 11:43 AM OUTSIDE ENERGY SALES REPRESENTATIVES) Progesterone 0.39 ng/mL Comment: Interpretive Data Males: <0.15 ng/mL Females: Follicular <0.20 ng/mL Ovulation <4.1 ng/mL Luteal 4.1 - 14.5 ng/mL 1st Trimester 11.0 - 44.0 ng/mL 2nd Trimester 25.0 - 83.0 ng/mL 3rd Trimester 59.0 - 214.0 ng/mL Postmenopausal <0.13 ng/mL Current interpretive data was last revised 2021. Blood 11/11/2024 11:4 3 AM OUTSIDE ENERGY SALES REPRESENTATIVES 11/11/2024 12:43 PM OUTSIDE ENERGY SALES REPRESENTATIVES Najma Mars MD LAB BLOOD ORDERABLES Final Re sult Performing Organization Address City/[facility] Co de Phone Number [facility] Lab[facility] [place], [place] [id number] * TSH (11/11/2024 11:43 AM OUTSIDE ENERGY SALES REPRESENTATIVES) Thyroid Stimulating Hormone 3.07 0.30 - 4.20 mcIUnit/mL Blood 11/11/2024 11:4 3 AM OUTSIDE ENERGY SALES REPRESENTATIVES 11/11/2024 12:43 PM OUTSIDE ENERGY SALES REPRESENTATIVES us Najma Mars MD LAB BLOOD ORDERABLES Final Re sult [facility] [place] [address] * FL Hysterosalpingogram (11/11/2024 10:57 AM OUTSIDE ENERGY SALES REPRESENTATIVES) Anatomical Region Laterality Modality Body, Pelvis N/A Radio Fluoroscop y 11/11/2024 11:1 8 AM OUTSIDE ENERGY SALES REPRESENTATIVES Impressions 11/11/2024 11:32 AM OUTSIDE ENERGY SALES REPRESENTATIVES 1. Patent right fallopian tube with appropriate [...] Mohsen Mckinney M.D. Narrative 11/11/2024 11:32 AM OUTSIDE ENERGY SALES REPRESENTATIVES EXAMINATION: HYSTEROSALPINGOGRAM HISTORY: 34 year old woman, [...] * POCT hCG, urine (11/11/2024 10:07 AM OUTSIDE ENERGY SALES REPRESENTATIVES) Pathologist [facility] HCG, ur, POC Negative Negative Lot Number [id number] QC Backgroud Clear Acceptable QC Control Line Acceptable Urine 11/11/2024 10:0 7 AM OUTSIDE ENERGY SALES REPRESENTATIVES Result [facility] Najma Mars MD POINT OF CARE TEST ORDERABLES Final Result * High Risk HPV DNA Detection with Genotyping (Molecular component) (04/28/2024 9:39 AM CDT) [facility] HPV HR [address] [facility] Comment:Testing performed by : [facility], [address] [place]., [address] HPV HR 18 Not Detected Not Detected [facility] Comment:Testing performed by : [facility], [address] [place]., [address] HPV HR Non 16/18 Not Detected Not Detected [facility] Comment: Interpretive Data Nucleic acid amplification for detection of high-risk Human Papilloma virus (HPV) is performed by the [employer] Mitchel 6800 HPV test. This assay specifically [...] this test have been verified by the [facility] Molecular Infectious Disease laboratory. Correlate with separately reported cytology results, as applicable. Interpretive data last revised 23 Testing performed by: [facility], [address] [facility], [place]., [address] Endocervical 04/28/2024 9:39 AM CDT 04/29/2024 12:54 PM CDT Narrative [facility] - 04/29/2024 6:14 PM CDT Clinical history and diagnosis->Screening, Crohn's, complete septate uterus Testing type->Screening Last menstrual period (date if known)->03/05/2024 Veronika Peguero NUTRITION AND DIETETICS INSTRUCTOR LAB BODY FLUIDS AND S TOOLS ORDERABLES Final Result Performing Organization Address City/State/[facility] Co de Phone Number [facility] [address] [address] [place] [address] [facility] from Last 3 Months or Most Recently Relevant to Health Maintenance Insurance [facility] [employer] PLANS Address: [facility] [id number] [id number] [employer] [facility] [employer] Address: [facility] [address] [place] [address] GENERIC COPAY ASSIST Member Subscriber Plan / Payer (Ef fective 2023-Present) Name:Medardo Beach Relation to Subscriber:Self Name:Medardo Beach Payer ID:[id number] Group ID:Not on file Type:OTHER Address: [address] [place], [place] [id number] [place] [address] [facility] Address: [address] [place] [address] [employer] [facility] [employer] Address: [facility] [address] [place] [address] Advance Directives For more information, please contact: [phone] * Full Code (Latest Code Status on File) Date Activated Date Inactivated Comments 07/14/2024 7:17 AM 07/14/2024 1:06 PM * Full Code Date Activated Date Inactivated Comments 03/05/2023 9:58 AM 03/05/2023 4:40 PM * Full Code Date Activated Date Inactivated Comments 07/12/2020 5:03 PM 07/13/2020 10:02 PM * Full Code Date Activated Date Inactivated Comments 05/15/2020 8:20 AM 05/15/2020 2:44 PM Care Teams Compounder Sterile Products Relationship Specialty Start Date End Date Piedad Orr DO [address] DIV IM GASTROENTEROLOGY, [address] [address] PCP - General Family Medicine 04/21/24 Kai Landers MD [address] DIV IM GASTROENTEROLOGY, [address] [address] Referring Physician Gastroenterology 12/12/21 Velma Ash MD [address] [place] [address] [address] Consulting Physician Obstetrics and Gynecology 04/21/24
[2025-01-08] MEDS: LIDO 1%/EPINEPHRINE 1:100,000 20 ML VIAL 10 ML INFILTRATE (22:27)
[2025-01-08 23:02] VITALS: BP 96/54; PULSE 97; RESP 18; O2SAT 100
== END 2025-01-08 23:04 | disposition home or self-care (01) ==
PROVIDERS: Emergency Provider Physician Assistant
DX: S51.821A Laceration with foreign body of right forearm, initial encounter (principal); W01.110A Fall on same level from slipping, tripping and stumbling with subsequent striking against sharp glass, initial encounter
CPT/HCPCS: 12004; 73090; 73130; 99283; J2004